=== PATIENT | female | born 1935 | race Caucasian/White ===

== ENCOUNTER 2019-12-07 | Emergency (ER) | payer MEDICARE ==
[~2019-12-07] MED LIST: AMLODIPINE BESY10 MG OR; AMOXICILLIN500 MG PO; ASPIRIN 8181 MG PO; CIPROFLOXACN500 MG PO; KEFLEX500 MG PO; LEVOTHYROXIN50 MC1 PO; METFORMIN HCL500 M1 OR; METO50TA52 PO; SIMVASTATIN10 MG PO; ULTRAM50 MG OR
== END 2019-12-07 17:45 | disposition home or self-care (01) ==
DX: M25.561 Pain in right knee (principal); E11.9 Type 2 diabetes mellitus without complications; I10 Essential (primary) hypertension; W01.0XXA Fall on same level from slipping, tripping and stumbling without subsequent striking against object, initial encounter; Z79.84 Long term (current) use of oral hypoglycemic drugs